=== PATIENT | female | born 1970 | race Hispanic/Latino ===

== ENCOUNTER 2019-12-06 08:50 | Outpatient (CLI) | payer OTHER ==
--- NOTE | 2019-12-06 10:22 | CT ---
Exam: Chest CT with contrast HISTORY: Chest tightness. Patient had cardiac ablation in 1989. FINDINGS: No mediastinal mass, lymphadenopathy or hematoma Normal heart size. No significant pericardial fluid. The thoracic aorta and upper abdominal aorta hav e a normal caliber. No periaortic fat stranding No masses or lymphadenopathy in the lower neck and axilla Upper abdomen: IVC filter is noted. Surgically absent gallbladder. Appropriate attenuation the visual ized solid organs. Diffuse hypoattenuation of the liver, likely due to hepatic steatosis. Small hiatal hernia. Trachea and central bronchi: Patent Pleural spaces: No pleural effusion Pneumothorax: None LUNGS: Minimal dependent atelectatic changes. No consolidation. Nodules: Right lung: Groundglass nodule in the superior segment of the right lower lobe measures 0.5 x 0.4 cm. Adjacent areas of lung parenchymal scarring and smaller groundglass nodules are suspected. Left lung: No suspicious nodules. Small calcified granuloma in the left lower lobe measuring 0.2 cm i s noted. IMPRESSION: 1. Groundglass nodules in the superior segment of the right lower lobe. Follow-up CT in 6 months is r ecommended.
== END 2019-12-06 08:51 | disposition home or self-care (01) ==
LOC: SCSCT 08:50
PROVIDERS: ATTEND Internal Medicine Cardiovascular Disease
DX: R07.89 Other chest pain (principal); R91.8 Other nonspecific abnormal finding of lung field
CPT/HCPCS: 71260

== ENCOUNTER 2019-12-08 05:35 | Outpatient (CLI) | payer OTHER ==
[2019-12-08 11:32] LABS: #Basophils 0.1 thou/uL (0.0-0.2); #Eosinphils 0.3 thou/uL (0.0-0.7); #Lymphocytes 2.1 thou/uL (1.20-3.40); #Monocytes 0.5 thou/uL (0.11-0.59); #Neutrophils 2.8 thou/uL (1.40-6.50); %Basophils 1.3 % (0.0-1.0); %Eosinophils 5.8 % (0.0-10.0); %Lymphocytes 35.8 % (21.0-51.0); %Monocytes 9.1 % (0.0-10.0); %Neutrophils 48.1 % (42.0-75.0); Hemoglobin 13.6 g/dL (12.0-16.0); Mean Corpuscular HGB CONC 32.2 g/dL (32.0-36.0); Mean Corpuscular Volume 96.5 fL (78.0-98.0); Mean Platelet Volume 7.6 fL (7.4-10.4); Platelet Count 250 thou/uL (130-400); RBC Distribution Width 11.9 % (11.5-14.5); Red Blood Cell (RBC) Count 4.37 mill/uL (4.20-5.40); White Blood Cell (WBC) Count 5.8 thou/uL (4.8-10.8)
[2019-12-08 11:38] LABS: ALT (SGPT) 21 U/L (8-55); AST (SGOT) 24 U/L (5-34); Albumin 4.3 g/dL (3.5-5.0); Alkaline Phosphatase 88 U/L (40-110); Anion Gap 10 mmol/L (10-20); BUN (Urea Nitrogen) 13 mg/dL (7.0-18.7); Bilirubin, Total 0.6 mg/dL (0.2-1.2); Calc. Creatinine Clearance 0 mL/min (70-130); Calcium 9.8 mg/dL (7.8-10.44); Carbon Dioxide 27 mmol/L (22-29); Cardiac Risk 3.9 (Less than 4.5); Chloride 107 mmol/L (98-107); Cholesterol 186 mg/dl (< 200 Desired); Estimated GFR-MDRD 83; Globulin 3.2 g/dL (2.4-3.5); Glucose 92 mg/dL (70-105); HDL Cholesterol 48 mg/dL (>60 Neg Risk); LDL Cholesterol, Calculated 112 mg/dL; Potassium 4.4 mmol/L (3.5-5.1); Protein, Total 7.5 g/dL (6.0-8.3); Sodium 140 mmol/L (136-145); Triglycerides 131 mg/dL (Less than 150)
[2019-12-08 17:17] LABS: SARS-CoV-2 MS2 Positive; SARS-CoV-2 N Gene Negative; SARS-CoV-2 S Gene Negative; SARS-CoV-2 orf1ab Negative
== END 2019-12-08 05:36 | disposition home or self-care (01) ==
LOC: LABBT 05:35
PROVIDERS: ATTEND Internal Medicine Cardiovascular Disease
DX: Z01.812 Encounter for preprocedural laboratory examination (principal); Z11.59 Encounter for screening for other viral diseases; R07.89 Other chest pain
CPT/HCPCS: 80053; 80061; 85025; 87635; U0003

== ENCOUNTER 2019-12-13 05:56 | Day surgery (SDC) | payer OTHER ==
[2019-12-08 09:07] VITALS: BMI 26.9
[2019-12-13] MEDS ORDERED: Verapamil 5 MG/2 ML VIAL ONE (08:51)
[2019-12-13] MEDS ORDERED: Midazolam HCl 2 mg/2 ml Vial ONE (08:51)
[2019-12-13] MEDS ORDERED: Heparin 10,000 UNITS/1 ML VIAL ONE (08:51)
[2019-12-13] MEDS ORDERED: Fentanyl 100 MCG/2 ML VIAL ONE (08:51)
[2019-12-13] MEDS ORDERED: Nitroglycerin 100MG/250ML BOT 250 ML ONE (08:51)
== END 2019-12-13 11:51 | disposition home or self-care (01) ==
LOC: CCL 05:56
PROVIDERS: ATTEND Internal Medicine Cardiovascular Disease
PROC: B2111ZZ Fluoroscopy of Multiple Coronary Arteries using Low Osmolar Contrast (ICD-10-PCS; principal; 2019-12-13)
PROC: 4A023N7 Measurement of Cardiac Sampling and Pressure, Left Heart, Percutaneous Approach (ICD-10-PCS; principal; 2019-12-13)
DX: R07.89 Other chest pain (principal); I82.509 Chronic embolism and thrombosis of unspecified deep veins of unspecified lower extremity; I45.9 Conduction disorder, unspecified; D68.59 Other primary thrombophilia; Z79.01 Long term (current) use of anticoagulants; Z88.5 Allergy status to narcotic agent
CPT/HCPCS: 93458; 99152; C1769; J1644; J2250; J3010

== ENCOUNTER 2020-01-04 09:34 | Outpatient (CLI) | payer OTHER ==
--- NOTE | 2020-01-04 12:21 | RAD ---
PA AND LATERAL VIEWS CHEST: Date: 01/04/2020 HISTORY: Dyspnea. FINDINGS: The heart size is normal. The lungs are expanded without focal areas of consolidation, pneumothoraces , or pleural effusions. No acute osseous abnormalities are seen. IMPRESSION: No radiographic evidence of acute cardiopulmonary process. POS: MICHAELA
--- NOTE | 2020-01-04 12:30 | NM ---
RADIONUCLIDE LUNG PERFUSION SCAN: Date: 01/04/2020 HISTORY: 49-year-old female with dyspnea. RADIOPHARMACEUTICAL: 6 mCi technetium-99m MAA injected intravenously. FINDINGS: Correlation is made with CXR of same date. Mild inhomogeneity is seen in the distribution of tracer to both lungs. No pleural based, wedge-shape d, segmental or subsegmental defects are seen. IMPRESSION: Normal bilateral lung perfusion. POS: MICHAELA
== END 2020-01-04 09:35 | disposition home or self-care (01) ==
LOC: NM 09:34
PROVIDERS: ATTEND Internal Medicine Critical Care Medicine
DX: R06.09 Other forms of dyspnea (principal)
CPT/HCPCS: 71046; 78451; A9540

== ENCOUNTER 2020-10-29 11:32 | Day surgery (SDC) | payer OTHER ==
[2020-10-26 11:04] VITALS: BMI 25.7
[2020-10-29 12:14] LABS: #Basophils 0.1 thou/uL (0.0-0.2); #Eosinphils 0.2 thou/uL (0.0-0.7); #Lymphocytes 1.7 thou/uL (1.20-3.40); #Monocytes 0.5 thou/uL (0.11-0.59); #Neutrophils 4.1 thou/uL (1.40-6.50); %Basophils 0.9 % (0.0-1.0); %Eosinophils 2.4 % (0.0-10.0); %Lymphocytes 26.7 % (21.0-51.0); %Monocytes 6.9 % (0.0-10.0); %Neutrophils 63.2 % (42.0-75.0); Hemoglobin 11.4 g/dL (12.0-16.0); Mean Corpuscular HGB CONC 32.6 g/dL (32.0-36.0); Mean Corpuscular Hemoglobin 29.2 pg (27.0-31.0); Mean Corpuscular Volume 89.7 fL (78.0-98.0); Mean Platelet Volume 6.7 fL (7.4-10.4); Platelet Count 254 thou/uL (130-400); RBC Distribution Width 12.4 % (11.5-14.5); Red Blood Cell (RBC) Count 3.91 mill/uL (4.20-5.40); White Blood Cell (WBC) Count 6.5 thou/uL (4.8-10.8)
[2020-10-29 12:24] LABS: INR-International Normal Ratio 2.4; PTT 38.5 sec (22.9-36.1); Prothrombin Time 26.5 sec (12.0-14.7)
[2020-10-29] MEDS ORDERED: Famotidine/PF 20 mg/2ml Vial ONE (13:42)
[2020-10-29] MEDS ORDERED: Betamet Acet/Betamet Na Ph 30 MG/5 ML VIAL ONE (13:44)
[2020-10-29] MEDS ORDERED: Bacitracin Zinc Ointment 30 gm TUBE ONE ×2 (13:44→13:53)
[2020-10-29] MEDS ORDERED: Bupivacaine PF 0.5% 30 ML VIAL ONE ×2 (13:44→13:53)
[2020-10-29] MEDS ORDERED: Sodium Chloride 0.9% 0 ML ONE (13:53)
[2020-10-29] MEDS ORDERED: Lidocaine 1% PF 5 ML VIAL ONE (14:48)
[2020-10-29] MEDS ORDERED: Dexamethasone 20 MG/5 ML VIAL ONE (14:48)
[2020-10-29] MEDS ORDERED: Ondansetron PF 4 MG/2 ML Vial ONE (14:48)
[2020-10-29] MEDS ORDERED: Ketorolac Tromethamine 30 MG/ML VIAL ONE (14:48)
[2020-10-29] MEDS ORDERED: PROPOFOL 200 MG/20 ML VIAL ONE (14:48)
[2020-10-29] MEDS ORDERED: PHENYLEPHRINE-NS 100 MCG/ML 10 ML SYRINGE ONE (14:48)
[2020-10-29] MEDS ORDERED: Metoclopramide HCl 10 MG/2 ML VIAL ONE (14:48)
[2020-10-29] MEDS ORDERED: Fentanyl 100 MCG/2 ML VIAL ONE (15:00)
== END 2020-10-29 17:45 | disposition home or self-care (01) ==
LOC: SDC 11:32
PROVIDERS: ATTEND Orthopaedic Surgery Hand Surgery
PROC: 01N60ZZ Release Radial Nerve, Open Approach (ICD-10-PCS; principal; 2020-10-29)
PROC: 0RBS0ZZ Excision of Right Carpometacarpal Joint, Open Approach (ICD-10-PCS; principal; 2020-10-29)
DX: M67.441 Ganglion, right hand (principal); G56.31 Lesion of radial nerve, right upper limb; Z79.01 Long term (current) use of anticoagulants; Z88.5 Allergy status to narcotic agent
CPT/HCPCS: 36415; 85025; 85610; 85730; 88304; J0690; J0702; J1100; J1885; J2405; J2704; J2765; J3010; J3490; S0020; S0028

== ENCOUNTER 2021-01-09 08:43 | Outpatient (CLI) | payer OTHER | END 2021-01-09 08:44 | disposition home or self-care (01) | LOC: BICCT 08:43 | PROVIDERS: ATTEND Internal Medicine Critical Care Medicine | DX: R91.8 Other nonspecific abnormal finding of lung field (principal) | CPT/HCPCS: 71250 ==

== ENCOUNTER 2022-02-24 10:24 | Outpatient (CLI) | payer OTHER | END 2022-02-24 10:25 | disposition home or self-care (01) | LOC: BICCT 10:24 | PROVIDERS: ATTEND Internal Medicine Critical Care Medicine | DX: R91.8 Other nonspecific abnormal finding of lung field (principal) | CPT/HCPCS: 71250 ==

== ENCOUNTER 2022-10-15 12:35 | Outpatient (CLI) | payer OTHER | END 2022-10-15 12:36 | disposition home or self-care (01) | LOC: SCSMRI 12:35 | PROVIDERS: ATTEND Nurse Practitioner Family | DX: M47.22 Other spondylosis with radiculopathy, cervical region (principal) | CPT/HCPCS: 72141 ==